=== PATIENT | male | born 1995 | race Caucasian/White ===

== ENCOUNTER 2021-12-04 16:11 | Emergency (ER) | payer OTHER, SELFPAY ==
[2021-12-04 16:10] VITALS: BP 142/84; PULSE 82; RESP 16; TEMP 36.6; O2SAT 100
[2021-12-04 16:49] LABS: Basophils Percent Auto 0.5 % (0.2-1.2); Eosinophils Absolute Auto 0.1 K/mm3 (0-0.3); Hematocrit 42.1 % (42.0-52.0); Hemoglobin 14.1 g/dL (14.0-18.0); Immature Granulocyte Absolute 0.02 K/mm3 (0.00-0.031); Immature Granulocyte Percent A 0.3 % (0-0.5); Lymphocytes Absolute Auto 0.75 K/mm3 (0.9-3.2); Mean Corpuscular HGB Conc 33.5 g/dl (32-36); Mean Corpuscular Hemoglobin 31.8 pg (26-34); Mean Corpuscular Volume 94.8 fl (80-100); Mean Platelet Volume 10.2 fl (7.4-10.4); Monocytes Absolute Auto 0.5 K/mm3 (0.1-0.6); Monocytes Percent Auto 7.7 % (2.6-8.5); Neutrophils Absolute Auto 4.9 K/mm3 (1.3-6.7); Neutrophils Percent Auto 78.5 % (45.5-73.1); Platelet Count Result 208 k/mm3 (150-375); Red Blood Count 4.44 M/mm3 (4.6-6.20); Red Cell Distribution Width 12.3 % (11.5-14.5); White Blood Count 6.2 K/mm3 (4.5-10.0)
[2021-12-04 16:59] LABS: Alanine Aminotransferase 14 U/L (6-50); Albumin Level 4.8 g/dL (3.5-5.1); Alkaline Phosphatase 71 U/L (38-126); Anion Gap 8 mmol/L (8-16); Aspartate Amino Transferase 19 U/L (17-59); Bilirubin,Total 0.8 mg/dL (0.2-1.3); Blood Urea Nitrogen 13 mg/dL (9-20); Calcium 9.7 mg/dL (8.4-10.2); Carbon Dioxide 27 mmol/L (22-30); Chloride 103 mmol/L (98-107); Estimated CRCL calculation 104 ml/min; Estimated Glomerular Filt Rate > 60; Glucose 127 mg/dL (65-110); Potassium 4.1 mmol/L (3.4-5.0); Sodium 138 mmol/L (137-145)
[2021-12-04 17:00] LABS: Ethanol < 10 mg/dL (<10)
[2021-12-04 17:19] LABS: Appearance Urine Cloudy (Clear); Bilirubin Urine Negative (Negative); Blood Urine Negative (Negative); Glucose Urine UA Negative (Negative); Ketones Urine Negative (Negative); Leukocyte Esterase Ur Negative LEU/UL (Negative); Nitrate Urine Negative (Negative); Protein Urine Negative (Negative); Specific Grav Ur 1.015 (1.001-1.035); Urobilinogen Urine 0.2 mg/dL (<2.0); pH Urine 8.5 (5.0-9.0)
[2021-12-04 17:21] LABS: Add Urine Microscopic? YES; Color Urine Light Yellow (Yellow)
[2021-12-04 17:23] LABS: Amorphous Sediment Urine Moderate; Bacteria Urine Trace /hpf; Mucus Urine Rare /lpf; RBC Urine 0-2 /hpf (0-2); Squamous Epithelial Cell Urine Rare /hpf (Few); WBC Urine 0-3 /hpf
--- NOTE | 2021-12-04 17:46 | ED.PSYCH ---
HPI - Psych General Chief Complaint: Psychiatric Symptoms <Jonny Jolley MD - Last Filed: 12/04/21 18:23> Stated Complaint: SI <Jonny Jolley MD - Last Filed: 12/04/21 18:23> Time Seen by Provider: 12/04/21 16:19 <Jonny Jolley MD - Last Filed: 12/04/21 18:23> History of Present Illness HPI Narrative: Patient is a 26-year-old female who presents ER due to concerns for suicidal ideation. Patient is currently going through a break-up with his girlfriend of 6 years. He had sent her texts endorsing suicidal ideation. He also administered self-inflicted cuts to his left forearm to relieve stress and to feel pain. No history of suicide attempt in the past. No previous mental health hospitalizations. No formal diagnosis of depression. Denies intoxication on alcohol. Reports he smokes marijuana to relieve stress but denies being high at this time. No homicidal ideation. No auditory visual hallucinations. Patient's tetanus shot is not up-to-date. Patient did have a brief standoff with EMS in place because he did not want to leave the home. No altercation occurred and patient did not have to be medicated by EMS. <Jonny Jolley MD - Last Filed: 12/04/21 18:23> Related Data Allergies/Adverse Reactions: Allergies Allergy/AdvReac Type Severity Reaction Status Date / Time No Known Allergies Allergy Unverified 11/27/12 19:22 <Jonny Jolley MD - Last Filed: 12/04/21 18:23> Review of Systems Review of Systems: All systems reviewed & are unremarkable except as noted in HPI and below <Jonny Jolley MD - Last Filed: 12/04/21 18:23> Constitutional: Constitutional: Denies chills, Denies fever(s) and Denies weakness <Jonny Jolley MD - Last Filed: 12/04/21 18:23> ENT: Denies nasal congestion and Denies sore throat <Jonny Jolley MD - Last Filed: 12/04/21 18:23> Cardiovascular: Cardiovascular: Denies chest pain, Denies rapid heart rate and Denies radiating jaw, neck or arm pain <Jonny Jolley MD - Last Filed: 12/04/21 18:23> Respiratory: Respiratory: Denies cough, Denies dyspnea and Denies wheezing <Jonny Jolley MD - Last Filed: 12/04/21 18:23> Gastrointestinal: Gastrointestinal: Denies abdominal pain and Denies nausea <Jonny Jolley MD - Last Filed: 12/04/21 18:23> Integumentary/Breasts: Comments: Superficial lacerations to left forearm. <Jonny Jolley MD - Last Filed: 12/04/21 18:23> Psychiatric: Psychiatric: Denies anxiety, Reports depression, Denies homicidal ideation and Reports suicidal ideation <Jonny Jolley MD - Last Filed: 12/04/21 18:23> PMFSH Past Medical History Medical History: Medical History (Updated 12/04/21 @ 20:02 by Genoveva De La Cruz MD) Healthy adult male <Jonny Jollye MD - Last Filed: 12/04/21 18:23> Surgical History Surgical History: Surgical History (Updated 12/04/21 @ 18:20 by Jonny Jolley MD) No pertinent past surgical history <Jonny Jolley MD - Last Filed: 12/04/21 18:23> Social History Social History: Social History Substance use type: marijuana <Jonny Jolley MD - Last Filed: 12/04/21 18:23> Exam Narrative: GENERAL: Tearful, well-nourished, and in no acute distress. HEAD: Normocephalic, atraumatic. EYES: PERRL and EOMI. ENT: Mucous membranes moist. CHEST: Clear to auscultation. No respiratory distress. HEART: Regular rate and rhythm. Normal peripheral pulses. ABDOMEN: Soft, nontender, nondistended. EXTREMITIES: Normal range of motion. No edema. SKIN: Warm, dry, no rash. Greater than 10 superficial lacerations left forearm not amenable to repair. NEURO: Alert and oriented x3. PSYCH: Depressed and evasive in questioning, endorse suicidality earlier, no HI or auditory/visual hallucinations. <Jonny Jolley MD - Last Filed: 12/04/21 18:23> Course Course Emergency Course: Patient signed out to me pending psychiatric evaluation. At th
[2021-12-04 17:50] LABS: Amphetamine Screen Urine Negative (Negative); Barbiturate Screen Urine Negative (Negative); Benzodiazepines Screen Urine Negative (Negative); Cannabinoid Screen Urine Positive (Negative); Cocaine Screen Urine Negative (Negative); Methadone Screen Urine Negative (Negative); Opiate Screen Urine Negative (Negative); Phencyclidine Screen Urine Negative (Negative)
--- NOTE | 2021-12-04 19:29 | PC.NURSE ---
Assuming care of pt.
[2021-12-04] MEDS: TETANUS,DIPHTHERIA,AC PERTUSSIS ADULT (0.5 ML) BOOSTRIX IM (19:31)
[2021-12-04 20:23] VITALS: BP 132/82; PULSE 62; RESP 16; O2SAT 100
== END 2021-12-04 20:22 | disposition home or self-care (01) ==
PROVIDERS: Emergency Medicine; Emergency Provider Emergency Medicine
DX: R45.88 Nonsuicidal self-harm (principal); S51.812A Laceration without foreign body of left forearm, initial encounter; Z23 Encounter for immunization; W26.9XXA Contact with unspecified sharp object(s), initial encounter
CPT/HCPCS: 36415; 80053; 80307; 81001; 84443; 85025; 90471; 90715; 99284